=== PATIENT | male | born 2000 | race Caucasian/White ===

== ENCOUNTER 2020-11-05 18:44 | Inpatient (IN) ==
[2020-11-05] MEDS ORDERED: dexAMETHasone**PF** 10 MG/ML VIAL IV ONE (18:49)
[2020-11-05] MEDS ORDERED: cefTRIAXone SODIUM 2,000 MG/70 ML BAG IV STA (18:49)
[2020-11-05 19:06] LABS: Appearance Urine Clear (Clear); Bacteria Urine Automated Negative (Negative); Bilirubin Urine Negative (Negative); Blood Urine Negative (Negative); Cast Urine Automated 0 /lpf (0-5); Color Urine Yellow; Glucose Urine UA Negative (Negative); Ketones Urine Negative (Negative); Leukocyte Esterase Urine Negative (Negative); Nitrite Urine Negative (Negative); Protein Urine 1+ (Negative); RBC Urine Automated 0-4 /hpf (0-4); Specific Gravity Urine 1.011 (1.000-1.030); Urobilinogen Urine Negative (Negative); pH Urine 5.5 (4.5-7.5)
--- NOTE | 2020-11-05 19:10 | Emergency Department Note ---
Impression & Plan Delirium, Aggressive behavior, Fever, Combative behavior ED Provider Note NAME: DAVE COREAS AGE: 20 SEX: M : 2000 ARRIVES VIA: Ambulance INFORMANT: Prehospital personnel, the police ED PROVIDER(S): Richard Martin DO CHIEF COMPLAINT: Altered mental status HPI: The patient is a 20-year-old male who presented to the emergency department for an evaluation of altered mental status. The patient is visiting friends in [place]. The patient is from the [place] area. Very little history is able to be obtained from the patient. He offers no history himself. I received a prehospital phone call about this patient. He was found to be very agitated by his friends and was injuring himself as well as his friends. The police were called. When they arrived the patient was unable to be restrained. When the prehospital personnel arrived they called me in order to secure further orders. The patient was given ketamine prior to arrival for excited delirium. There was no other history given. There was no definite history of trauma. There is no definite history of drug abuse but the police did produce a small canister that had a crystalline-like substance that was felt to be consistent with some sort of drug paraphernalia. The patient has no signs of trauma. ROS: See above HPI for pertinent positives & negatives. A total of 10 systems reviewed and were otherwise negative. PAST MEDICAL HISTORY: See Below PAST SURGICAL HISTORY: See Below FAMILY HISTORY: See Below SOCIAL HISTORY: See Below HOME MEDICATIONS: See Below ALLERGIES: See Below VITALS: See Below PHYSICAL EXAMINATION: GENERAL: The patient is obtunded likely secondary to ketamine he does not follow commands or answer questions. EYES: The conjunctivae are injected. The pupils are dilated and minimally reactive bilaterally. EARS, NOSE, MOUTH AND THROAT: The nose is without any evidence of any deformity. Mucous membranes are dry. NECK: The neck is nontender and supple. RESPIRATORY: Normal respiratory effort is noted there is no evidence of wheezing rhonchi or rales CARDIOVASCULAR: Tachycardic rate with regular rhythm was noted. There was no definite murmur. GASTROINTESTINAL: The abdomen is soft. Abdomen is nontender. BACK: No step-off was noted. MUSCULOSKELETAL/EXTREMITIES: There is no evidence of gross deformity full range of motion is noted in the hips and shoulders. SKIN: Skin is warm and dry. There is no pedal edema. Pulses are symmetric in all extremities. NEUROLOGIC: Patient is obtunded and does not answer questions. Patellar tendon reflexes are 3+ bilaterally. MEDICAL DECISION MAKING: The patient is a 20-year-old male who presented to the emergency department with police and EMS for an evaluation of altered mental status. The patient was found by his friends very combative. There is no history of trauma but the patient's history was completely limited due to altered mental status. The police were called as well as the EMS. When they arrived the patient was very combative and they were unable to subdue the patient despite having multiple police officers multiple EMS personnel. I received a prehospital notification about this patient and the patient was ordered ketamine IM. The patient was able to be transported safely after that initiation. Upon arrival the patient was placed in soft restraints but was significantly improved. He was still unable to answer any questions and no definite cause for the patient's presenta tion could be found. The police did have some paraphernalia which could be consistent with drug use but his drug screen was only positive for marijuana. The patient had a fever upon arrival but this could be secondary to the excited delirium. CT the head showed no acute disease so lumbar puncture was obtained. The patient was treated with IV fluids IV antibiotics and IV Decadron in case his lumbar puncture was positive. Lumbar puncture did not appear to be consistent with meningitis or subarachnoid hemorrhage. The patient was reevaluated multiple times. He did receive further sedation while in the emergency department. At this time I will discuss the patient's condition with the [facility] hospitalist. Likely the patient will require further inpatient observation to ensure his condition continues to improve. Triage Nursing notes reviewed. Prior medical records reviewed Vital Signs: reviewed and remarkable for elevated temperature and initial tachycardia. Differential diagnosis: Infection, hypoglycemia, electrolyte abnormalities, overdose, toxicologic, cardiac sources, intracerebral event, neurologic, trauma, as well as other pathologies. ER treatment provided: See below Diagnostics interpreted by me: ECG: EKG was obtained in the emergency department. My interpretation is sinus tachycardia at 116 bpm. There is no ectopy. There is no acute ST segment abnormalities noted. No previous tracing was available. Cardiac Monitoring: An order was placed for continuous cardiac monitoring. The monitor shows a rate of 85 bpm with sinus rhythm. Laboratory studies: As stated above and show below. Imaging studies: See below Consultation(s): Dr. Rothman was notified about the patient. He will evaluate the patient in the emergency department. ED COURSE: Procedures: Lumbar Puncture Indication: Fever and altered mental status. Verbal consent was unable to be obtained as the patient is altered in his mental status and is not able to give consent. At this time, the risks of the procedure are less than the risks of NOT performing the procedure. A time out was taken and the correct patient and site identified. The patient was placed in the left lateral position and the back was prepped with betadine and draped in the standard fashion. The L3 intervertebral space was identified, anesthetized locally with 1% lidocaine without epinephrine, and the spinal needle was inserted through the skin with the bevel parallel to the dural fibers. The needle was carefully advanced into the lumbar cistern and 4 tubes of clear CSF was obtained. The stylet was replaced and the needle was removed. A bandaid was placed and the patient was placed in the supine position. The patient tolerated the procedure well and there were no complications. Critical Care: I have personally spent greater than 55 minutes of critical care time in the direct management of this patient. This includes bedside care, interpretation of diagnostic studies, and testing, discussion with consultants, patient, and family members, and other required patient management activities. This 55 minutes is in excess of all separately billable procedures. Past Med/Surg History Social History Smoking Status: Unknown if ever smoked Preferred Language: Citizen Of [place] Home Meds Home Medications Medication Instructions Recorded Confirmed Unobtainable 11/05/20 11/05/20 Results & Data (ED) Vital Signs Vital Signs - 24 hr 11/05/20 18:47 11/05/20 18:48 11/05/20 18:56 Temperature 38 C H Temperature Source Oral Pulse Rate 115 H 122 H 127 H Pulse Rate from SpO2 Sensor 130 H 119 H Respiratory Rate 19 19 13 Respiratory Effort / Characteristics Blood Pressure 130/102 H 130/102 H Blood Pressure Mean 111 111 Blood Pressure Position Lying Pulse Oximetry 97 97 96 Oxygen Delivery Method Room Air Nasal Cannula Nasal Cannula Oxygen Flow Rate 4 4 Sepsis Recent Fever Within 48 Hours Yes Sepsis New/Unexplained Change in Mental Status Yes Sepsis Action Taken by Nursing Physician Notified 11/05/20 18:57 11/05/20 19:00 11/05/20 19:20 Temperature 39.4 C H Temperature Source Rectal Pulse Rate 116 H 109 H Pulse Rate from SpO2 Sensor 124 H 107 H Respiratory Rate 22 17 27 H Respiratory Effort / Characteristics Non-Labored Spontaneous Blood Pressure 154/106 H Blood Pressure Mean 122 Blood Pressure Position Pulse Oximetry 96 98 Oxygen Delivery Method Nasal Cannula Nasal Cannula Nasal Cannula Oxygen Flow Rate 4 4 4 Sepsis Recent Fever Within 48 Hours Sepsis New/Unexplained Change in Mental Status Sepsis Action Taken by Nursing 11/05/20 19:24 11/05/20 19:48 11/05/20 20:00 Temperature Temperature Source Pulse Rate 66 Pulse Rate from SpO2 Sensor 84 66 Respiratory Rate 24 22 17 Respiratory Effort / Characteristics Non-Labored Spontaneous Blood Pressure 172/74 H 128/66 Blood Pressure Mean 106 86 Blood Pressure Position Pulse Oximetry 96 96 95 Oxygen Delivery Method Nasal Cannula Nasal Cannula Nasal Cannula Oxygen Flow Rate 4 4 4 Sepsis Recent Fever Within 48 Hours Sepsis New/Unexplained Change in Mental Status Sepsis Action Taken by Nursing 11/05/20 20:07 11/05/20 20:20 Temperature 38.6 C H Temperature Source Rectal Pulse Rate Pulse Rate from SpO2 Sensor Respiratory Rate 18 Respiratory Effort / Characteristics Non-Labored Spontaneous Blood Pressure Blood Pressure Mean Blood Pressure Position Pulse Oximetry 96 Oxygen Delivery Method Nasal Cannula Oxygen Flow Rate 4 Sepsis Recent Fever Within 48 Hours Sepsis New/Unexplained Change in Mental Status Sepsis Action Taken by [facility] Medications Current Medication List: was personally reviewed by me Laboratory Data Attestation: I reviewed the patient's lab results. Result diagrams: 11/05/20 18:56 11/05/20 18:56 Lab Results 11/05/20 11/05/20 11/05/20 Range/Units 18:50 18:50 18:56 WBC (4.8-10.8) K/uL RBC (4.7-6.1) M/uL Hgb (14.0-18.0) g/dL Hct (42-52) % MCV (80-100) fL MCH (25-34) pg MCHC (32-36) g/dL RDW Std Deviation (36.4-46.3) fL RDW Coeff of Kasey (11.5-14.5) % Plt Count (130-400) K/uL MPV (7.4-10.4) fL Immature Gran % (Auto) % Neut % (Auto) % Lymph % (Auto) % [place] % (Auto) % Eos % (Auto) % Baso % (Auto) % Neut # (Auto) (1.4-6.5) K/uL Lymph # (Auto) (1.2-3.4) K/uL [place] # (Auto) (0.11-0.59) K/uL Eos # (Auto) (0-0.5) K/uL Baso # (Auto) (0-0.2) K/uL Immature Gran # (Auto) (0.00-0.02) K/uL ESR 2 (0-14) mm/hr PT (9.0-12.0) Seconds INR (0.9-1.1) APTT (21.0-31.0) Seconds PTT Ratio Sodium (136-145) mmol/L Potassium (3.5-5.1) mmol/L Chloride (98-107) mmol/L Carbon Dioxide (21-32) mmol/L Anion Gap (3-11) BUN (7-18) mg/dl Creatinine (0.6-1.4) mg/dl Est Cr Clr Drug Dosing Est GFR ( Amer) Est GFR (Non-Af Amer) BUN/Creatinine Ratio (10-20) Glucose (70-99) mg/dl Osmolality (280-300) mOsm/kg Lactate (0.4-2.0) mmol/L Calcium (8.5-10.1) mg/dl Magnesium (1.8-2.4) mg/dl Total Bilirubin (0.2-1) mg/dl AST (15-37) U/L ALT (12-78) U/L Alkaline Phosphatase (45-117) U/L Total Creatine Kinase (39-308) U/L CK-MB (CK-2) (0.5-3.6) ng/ml CK/CKMB % Calc (0-3.0) Troponin I (0-0.045) ng/ml C-Reactive Protein (0-0.29) mg/dl Total Protein (6.4-8.2) gm/dl Albumin (3.4-5.0) gm/dl Globulin (2.5-4.0) gm/dl Albumin/Globulin Ratio (0.9-2) Procalcitonin (0-0.5) ng/ml Urine Color Yellow Urine Appearance Clear (Clear) Urine pH 5.5 (4.5-7.5) Ur Specific [place] 1.011 (1.000-1.030) Urine Protein 1+ H (Negative) Urine Glucose (UA) Negative (Negative) Urine Ketones Negative (Negative) Urine Blood Negative (Negative) Urine Nitrite Negative (Negative) Urine Bilirubin Negative (Negative) Urine Urobilinogen Negative (Negative) Ur Leukocyte Esterase Negative (Negative) Urine WBC (Auto) 1-5 (0-5) /hpf Urine RBC (Auto) 0-4 (0-4) /hpf U Hyaline Cast (Auto) 0 (0-5) /lpf U Epithel Cells (Auto) 5-10 H (0-5) /lpf Urine Bacteria (Auto) Negative (Negative) Fluid Comment CSF Appearance CSF Color Xanthrochromic CSF WBC (0-5) /uL CSF RBC (0-) /uL CSF Cell Count Tube # CSF Chemistry Tube # CSF Glucose (40-70) mg/dl CSF Total Protein (15-45) mg/dl Salicylates (2.8-20) mg/dl Urine Opiates Screen Neg (Neg) Ur Methadone, Qual Neg (Neg) Acetaminophen (10-30) ug/ml Urine Barbiturates Neg (Neg) Ur Phencyclidine (PCP) Neg (Neg) U Amphetamin/Meth Scrn Neg (Neg) MDMA (Ecstasy) Screen Neg (Neg) U Benzodiazepines Scrn Neg (Neg) Ur Cocaine Metabolite Neg (Neg) U Marijuana (THC) Screen Pos H (Neg) Ethyl Alcohol mg/dL (0-3) mg/dl COVID-19 Eval Order SARS-CoV-2 (PCR) (Negative) Influenza Type A (PCR) (Neg) Influenza Type B (PCR) (Neg) RSV (RT-PCR) (Neg) 11/05/20 11/05/20 11/05/20 Range/Units 18:56 18:56 18:56 WBC (4.8-10.8) K/uL RBC (4.7-6.1) M/uL Hgb (14.0-18.0) g/dL Hct (42-52) % MCV (80-100) fL MCH (25-34) pg MCHC (32-36) g/dL RDW Std Deviation (36.4-46.3) fL RDW Coeff of Kasey (11.5-14.5) % Plt Count (130-400) K/uL MPV (7.4-10.4) fL Immature Gran % (Auto) % Neut % (Auto) % Lymph % (Auto) % [place] % (Auto) % Eos % (Auto) % Baso % (Auto) % Neut # (Auto) (1.4-6.5) K/uL Lymph # (Auto) (1.2-3.4) K/uL [place] # (Auto) (0.11-0.59) K/uL Eos # (Auto) (0-0.5) K/uL Baso # (Auto) (0-0.2) K/uL Immature Gran # (Auto) (0.00-0.02) K/uL ESR (0-14) mm/hr PT (9.0-12.0) Seconds INR (0.9-1.1) APTT (21.0-31.0) Seconds PTT Ratio Sodium 135 L (136-145) mmol/L Potassium 3.7 (3.5-5.1) mmol/L Chloride 99 (98-107) mmol/L Carbon Dioxide 24 (21-32) mmol/L Anion Gap 12.0 H (3-11) BUN 15 (7-18) mg/dl Creatinine 1.41 H (0.6-1.4) mg/dl Est Cr Clr Drug Dosing Not Reportable Est GFR ( Amer) 82.5 Est GFR (Non-Af Amer) 71.2 BUN/Creatinine Ratio 10.8 (10-20) Glucose 142 H (70-99) mg/dl Osmolality 285 (280-300) mOsm/kg Lactate (0.4-2.0) mmol/L Calcium 8.4 L (8.5-10.1) mg/dl Magnesium 1.9 (1.8-2.4) mg/dl Total Bilirubin 0.5 (0.2-1) mg/dl AST 32 (15-37) U/L ALT 27 (12-78) U/L Alkaline Phosphatase 82 (45-117) U/L Total Creatine Kinase 679 H (39-308) U/L CK-MB (CK-2) 3.7 H (0.5-3.6) ng/ml CK/CKMB % Calc 0.5 (0-3.0) Troponin I < 0.015 (0-0.045) ng/ml C-Reactive Protein < 0.29 (0-0.29) mg/dl Total Protein 7.8 (6.4-8.2) gm/dl Albumin 4.3 (3.4-5.0) gm/dl Globulin 3.5 (2.5-4.0) gm/dl Albumin/Globulin Ratio 1.2 (0.9-2) Procalcitonin (0-0.5) ng/ml Urine Color Urine Appearance (Clear) Urine pH (4.5-7.5) Ur Specific [place] (1.000-1.030) Urine Protein (Negative) Urine Glucose (UA) (Negative) Urine Ketones (Negative) Urine Blood (Negative) Urine Nitrite (Negative) Urine Bilirubin (Negative) Urine Urobilinogen (Negative) Ur Leukocyte Esterase (Negative) Urine WBC (Auto) (0-5) /hpf Urine RBC (Auto) (0-4) /hpf U Hyaline Cast (Auto) (0-5) /lpf U Epithel Cells (Auto) (0-5) /lpf Urine Bacteria (Auto) (Negative) Fluid Comment CSF Appearance CSF Color Xanthrochromic CSF WBC (0-5) /uL CSF RBC (0-) /uL CSF Cell Count Tube # CSF Chemistry Tube # CSF Glucose (40-70) mg/dl CSF Total Protein (15-45) mg/dl Salicylates (2.8-20) mg/dl Urine Opiates Screen (Neg) Ur Methadone, Qual (Neg) Acetaminophen (10-30) ug/ml Urine Barbiturates (Neg) Ur Phencyclidine (PCP) (Neg) U Amphetamin/Meth Scrn (Neg) MDMA (Ecstasy) Screen (Neg) U Benzodiazepines Scrn (Neg) Ur Cocaine Metabolite (Neg) U Marijuana (THC) Screen (Neg) Ethyl Alcohol mg/dL < 3.0 (0-3) mg/dl COVID-19 Eval Order SARS-CoV-2 (PCR) (Negative) Influenza Type A (PCR) (Neg) Influenza Type B (PCR) (Neg) RSV (RT-PCR) (Neg) 11/05/20 11/05/20 11/05/20 Range/Units 18:56 18:56 18:56 WBC 8.55 (4.8-10.8) K/uL RBC 4.68 L (4.7-6.1) M/uL Hgb 14.3 (14.0-18.0) g/dL Hct 40.5 L (42-52) % MCV 86.5 (80-100) fL MCH 30.6 (25-34) pg MCHC 35.3 (32-36) g/dL RDW Std Deviation 37.7 (36.4-46.3) fL RDW Coeff of Kasey 12.0 (11.5-14.5) % Plt Count 246 (130-400) K/uL MPV 9.5 (7.4-10.4) fL Immature Gran % (Auto) 0.2 % Neut % (Auto) 75.2 % Lymph % (Auto) 15.6 % [place] % (Auto) 8.7 % Eos % (Auto) 0.2 % Baso % (Auto) 0.1 % Neut # (Auto) 6.43 (1.4-6.5) K/uL Lymph # (Auto) 1.33 (1.2-3.4) K/uL [place] # (Auto) 0.74 H (0.11-0.59) K/uL Eos # (Auto) 0.02 (0-0.5) K/uL Baso # (Auto) 0.01 (0-0.2) K/uL Immature Gran # (Auto) 0.02 (0.00-0.02) K/uL ESR (0-14) mm/hr PT 11.5 (9.0-12.0) Seconds INR 1.1 (0.9-1.1) APTT 22.5 (21.0-31.0) Seconds PTT Ratio 0.9 Sodium (136-145) mmol/L Potassium (3.5-5.1) mmol/L Chloride (98-107) mmol/L Carbon Dioxide (21-32) mmol/L Anion Gap (3-11) BUN (7-18) mg/dl Creatinine (0.6-1.4) mg/dl Est Cr Clr Drug Dosing Est GFR ( Amer) Est GFR (Non-Af Amer) BUN/Creatinine Ratio (10-20) Glucose (70-99) mg/dl Osmolality (280-300) mOsm/kg Lactate (0.4-2.0) mmol/L Calcium (8.5-10.1) mg/dl Magnesium (1.8-2.4) mg/dl Total Bilirubin (0.2-1) mg/dl AST (15-37) U/L ALT (12-78) U/L Alkaline Phosphatase (45-117) U/L Total Creatine Kinase (39-308) U/L CK-MB (CK-2) (0.5-3.6) ng/ml CK/CKMB % Calc (0-3.0) Troponin I (0-0.045) ng/ml C-Reactive Protein (0-0.29) mg/dl Total Protein (6.4-8.2) gm/dl Albumin (3.4-5.0) gm/dl Globulin (2.5-4.0) gm/dl Albumin/Globulin Ratio (0.9-2) Procalcitonin < 0.05 (0-0.5) ng/ml Urine Color Urine Appearance (Clear) Urine pH (4.5-7.5) Ur Specific [place] (1.000-1.030) Urine Protein (Negative) Urine Glucose (UA) (Negative) Urine Ketones (Negative) Urine Blood (Negative) Urine Nitrite (Negative) Urine Bilirubin (Negative) Urine Urobilinogen (Negative) Ur Leukocyte Esterase (Negative) Urine WBC (Auto) (0-5) /hpf Urine RBC (Auto) (0-4) /hpf U Hyaline Cast (Auto) (0-5) /lpf U Epithel Cells (Auto) (0-5) /lpf Urine Bacteria (Auto) (Negative) Fluid Comment CSF Appearance CSF Color Xanthrochromic CSF WBC (0-5) /uL CSF RBC (0-) /uL CSF Cell Count Tube # CSF Chemistry Tube # CSF Glucose (40-70) mg/dl CSF Total Protein (15-45) mg/dl Salicylates (2.8-20) mg/dl Urine Opiates Screen (Neg) Ur Methadone, Qual (Neg) Acetaminophen (10-30) ug/ml Urine Barbiturates (Neg) Ur Phencyclidine (PCP) (Neg) U Amphetamin/Meth Scrn (Neg) MDMA (Ecstasy) Screen (Neg) U Benzodiazepines Scrn (Neg) Ur Cocaine Metabolite (Neg) U Marijuana (THC) Screen (Neg) Ethyl Alcohol mg/dL (0-3) mg/dl COVID-19 Eval Order SARS-CoV-2 (PCR) (Negative) Influenza Type A (PCR) (Neg) Influenza Type B (PCR) (Neg) RSV (RT-PCR) (Neg) 11/05/20 11/05/20 11/05/20 Range/Units 18:56 18:56 18:59 WBC (4.8-10.8) K/uL RBC (4.7-6.1) M/uL Hgb (14.0-18.0) g/dL Hct (42-52) % MCV (80-100) fL MCH (25-34) pg MCHC (32-36) g/dL RDW Std Deviation (36.4-46.3) fL RDW Coeff of Kasey (11.5-14.5) % Plt Count (130-400) K/uL MPV (7.4-10.4) fL Immature Gran % (Auto) % Neut % (Auto) % Lymph % (Auto) % [place] % (Auto) % Eos % (Auto) % Baso % (Auto) % Neut # (Auto) (1.4-6.5) K/uL Lymph # (Auto) (1.2-3.4) K/uL [place] # (Auto) (0.11-0.59) K/uL Eos # (Auto) (0-0.5) K/uL Baso # (Auto) (0-0.2) K/uL Immature Gran # (Auto) (0.00-0.02) K/uL ESR (0-14) mm/hr PT (9.0-12.0) Seconds INR (0.9-1.1) APTT (21.0-31.0) Seconds PTT Ratio Sodium (136-145) mmol/L Potassium (3.5-5.1) mmol/L Chloride (98-107) mmol/L Carbon Dioxide (21-32) mmol/L Anion Gap (3-11) BUN (7-18) mg/dl Creatinine (0.6-1.4) mg/dl Est Cr Clr Drug Dosing Est GFR ( Amer) Est GFR (Non-Af Amer) BUN/Creatinine Ratio (10-20) Glucose (70-99) mg/dl Osmolality (280-300) mOsm/kg Lactate 6.4 H* (0.4-2.0) mmol/L Calcium (8.5-10.1) mg/dl Magnesium (1.8-2.4) mg/dl Total Bilirubin (0.2-1) mg/dl AST (15-37) U/L ALT (12-78) U/L Alkaline Phosphatase (45-117) U/L Total Creatine Kinase (39-308) U/L CK-MB (CK-2) (0.5-3.6) ng/ml CK/CKMB % Calc (0-3.0) Troponin I (0-0.045) ng/ml C-Reactive Protein (0-0.29) mg/dl Total Protein (6.4-8.2) gm/dl Albumin (3.4-5.0) gm/dl Globulin (2.5-4.0) gm/dl Albumin/Globulin Ratio (0.9-2) Procalcitonin (0-0.5) ng/ml Urine Color Urine Appearance (Clear) Urine pH (4.5-7.5) Ur Specific [place] (1.000-1.030) Urine Protein (Negative) Urine Glucose (UA) (Negative) Urine Ketones (Negative) Urine Blood (Negative) Urine Nitrite (Negative) Urine Bilirubin (Negative) Urine Urobilinogen (Negative) Ur Leukocyte Esterase (Negative) Urine WBC (Auto) (0-5) /hpf Urine RBC (Auto) (0-4) /hpf U Hyaline Cast (Auto) (0-5) /lpf U Epithel Cells (Auto) (0-5) /lpf Urine Bacteria (Auto) (Negative) Fluid Comment CSF Appearance CSF Color Xanthrochromic CSF WBC (0-5) /uL CSF RBC (0-) /uL CSF Cell Count Tube # CSF Chemistry Tube # CSF Glucose (40-70) mg/dl CSF Total Protein (15-45) mg/dl Salicylates < 1.7 L (2.8-20) mg/dl Urine Opiates Screen (Neg) Ur Methadone, Qual (Neg) Acetaminophen < 2 L (10-30) ug/ml Urine Barbiturates (Neg) Ur Phencyclidine (PCP) (Neg) U Amphetamin/Meth Scrn (Neg) MDMA (Ecstasy) Screen (Neg) U Benzodiazepines Scrn (Neg) Ur Cocaine Metabolite (Neg) U Marijuana (THC) Screen (Neg) Ethyl Alcohol mg/dL (0-3) mg/dl COVID-19 Eval Order [facility] at [facility] SARS-CoV-2 (PCR) (Negative) Influenza Type A (PCR) (Neg) Influenza Type B (PCR) (Neg) RSV (RT-PCR) (Neg) 11/05/20 11/05/20 Range/Units 18:59 19:49 WBC (4.8-10.8) K/uL RBC (4.7-6.1) M/uL Hgb (14.0-18.0) g/dL Hct (42-52) % MCV (80-100) fL MCH (25-34) pg MCHC (32-36) g/dL RDW Std Deviation (36.4-46.3) fL RDW Coeff of Kasey (11.5-14.5) % Plt Count (130-400) K/uL MPV (7.4-10.4) fL Immature Gran % (Auto) % Neut % (Auto) % Lymph % (Auto) % [place] % (Auto) % Eos % (Auto) % Baso % (Auto) % Neut # (Auto) (1.4-6.5) K/uL Lymph # (Auto) (1.2-3.4) K/uL [place] # (Auto) (0.11-0.59) K/uL Eos # (Auto) (0-0.5) K/uL Baso # (Auto) (0-0.2) K/uL Immature Gran # (Auto) (0.00-0.02) K/uL ESR (0-14) mm/hr PT (9.0-12.0) Seconds INR (0.9-1.1) APTT (21.0-31.0) Seconds PTT Ratio Sodium (136-145) mmol/L Potassium (3.5-5.1) mmol/L Chloride (98-107) mmol/L Carbon Dioxide (21-32) mmol/L Anion Gap (3-11) BUN (7-18) mg/dl Creatinine (0.6-1.4) mg/dl Est Cr Clr Drug Dosing Est GFR ( Amer) Est GFR (Non-Af Amer) BUN/Creatinine Ratio (10-20) Glucose (70-99) mg/dl Osmolality (280-300) mOsm/kg Lactate (0.4-2.0) mmol/L Calcium (8.5-10.1) mg/dl Magnesium (1.8-2.4) mg/dl Total Bilirubin (0.2-1) mg/dl AST (15-37) U/L ALT (12-78) U/L Alkaline Phosphatase (45-117) U/L Total Creatine Kinase (39-308) U/L CK-MB (CK-2) (0.5-3.6) ng/ml CK/CKMB % Calc (0-3.0) Troponin I (0-0.045) ng/ml C-Reactive Protein (0-0.29) mg/dl Total Protein (6.4-8.2) gm/dl Albumin (3.4-5.0) gm/dl Globulin (2.5-4.0) gm/dl Albumin/Globulin Ratio (0.9-2) Procalcitonin (0-0.5) ng/ml Urine Color Urine Appearance (Clear) Urine pH (4.5-7.5) Ur Specific [place] (1.000-1.030) Urine Protein (Negative) Urine Glucose (UA) (Negative) Urine Ketones (Negative) Urine Blood (Negative) Urine Nitrite (Negative) Urine Bilirubin (Negative) Urine Urobilinogen (Negative) Ur Leukocyte Esterase (Negative) Urine WBC (Auto) (0-5) /hpf Urine RBC (Auto) (0-4) /hpf U Hyaline Cast (Auto) (0-5) /lpf U Epithel Cells (Auto) (0-5) /lpf Urine Bacteria (Auto) (Negative) Fluid Comment CSF Appearance Clear CSF Color Colorless Xanthrochromic No xanthochromia CSF WBC 0 (0-5) /uL CSF RBC 2 (0-) /uL CSF Cell Count Tube # 3 CSF Chemistry Tube # 1 CSF Glucose 67 (40-70) mg/dl CSF Total Protein 43.1 (15-45) mg/dl Salicylates (2.8-20) mg/dl Urine Opiates Screen (Neg) Ur Methadone, Qual (Neg) Acetaminophen (10-30) ug/ml Urine Barbiturates (Neg) Ur Phencyclidine (PCP) (Neg) U Amphetamin/Meth Scrn (Neg) MDMA (Ecstasy) Screen (Neg) U Benzodiazepines Scrn (Neg) Ur Cocaine Metabolite (Neg) U Marijuana (THC) Screen (Neg) Ethyl Alcohol mg/dL (0-3) mg/dl COVID-19 Eval Order SARS-CoV-2 (PCR) NEGATIVE (Negative) Influenza Type A (PCR) Negative (Neg) Influenza Type B (PCR) Negative (Neg) RSV (RT-PCR) Negative (Neg) Administered Medications Discontinued Medications Acetaminophen (Acetaminophen 1000 Mg/100 Ml Iv) 1,000 mg IV ONE ONE Stop: 11/05/20 19:55 Last Admin: 11/05/20 19:56 Dose: 1,000 mg Documented by: [id number] Dexamethasone Sodium Phosphate (DexamethasonePf 10 Mg/Ml Vial) 10 mg IV NOW ONE Stop: 11/05/20 18:50 Last Admin: 11/05/20 19:02 Dose: 10 mg Documented by: [id number] Haloperidol Lactate (Haloperidol Lactate 5 Mg/Ml 1 Ml Vial) 5 mg IM NOW STA Stop: 11/05/20 19:19 Last Admin: 11/05/20 19:23 Dose: 5 mg Documented by: [id number] Haloperidol Lactate (Haloperidol Lactate 5 Mg/Ml 1 Ml Vial) Confirm Administered Dose 5 mg .ROUTE .STK-MED ONE Stop: 11/05/20 19:19 Last Admin: 11/05/20 19:23 Dose: Not Given Documented by: [id number] Ceftriaxone Sodium (Rocephin) 2,000 mg in 70 mls @ 140 mls/hr IV NOW STA Stop: 11/05/20 19:18 Last Infusion: 11/05/20 19:34 Dose: 0 mls/hr Documented by: [id number] Admin: 11/05/20 19:04 Dose: 140 mls/hr Documented by: [id number] Sodium Chloride (Nss 1000ml) 1,000 mls @ 999 mls/hr IV .Q1H1M ONE Stop: 11/05/20 20:48 Last Admin: 11/05/20 19:56 Dose: 999 mls/hr Documented by: [id number] Lorazepam (Lorazepam 2 Mg/Ml Vial (Im Use)) 2 mg IM NOW STA Stop: 11/05/20 19:19 Last Admin: 11/05/20 19:23 Dose: Not Given Documented by: [id number] Lorazepam (Lorazepam 2 Mg/4 Ml Vial) Confirm Administered Dose 2 mg .ROUTE .STK- MED ONE Stop: 11/05/20 19:19 Last Admin: 11/05/20 19:22 Dose: 2 mg Documented by: [id number] Imaging Data Radiologist's Impression: Cervical Spine CT 11/05/20 18:49 CT cervical spine wo con CT DOSE: 1104.62 mGy.cm CLINICAL HISTORY: 20 years-old Male with ams. Acute head and neck pain with altered mental status COMPARISON: Head CT of same day TECHNIQUE: Multiple axial CT images of the cervical spine were obtained without contrast. A dose lowering technique was utilized adhering to the principles of ALARA. FINDINGS: Vertebral body heights and alignment are normal. No fracture or subluxation is identified. The intervertebral disc spaces are preserved. No significant central canal or neural foraminal stenosis is identified. The cervical soft tissues appear unremarkable. The visualized lung apices appear clear. IMPRESSION: No acute fracture or subluxation. ACT 112: Negative or not required by law. The above report was generated using voice recognition software. It may contain grammatical, syntax or spelling errors. Electronically signed by: Reece Zuluaga M.D. 11/05/2020 7:[address] 11/05/20 18:49 CT head/brain wo con CLINICAL HISTORY: 20 years-old Male with ams. Acutely altered mental status TECHNIQUE: Multiple axial CT images of the head were obtained without contrast. A dose lowering technique was utilized adhering to the principles of ALARA. COMPARISON: CT cervical spine of same day FINDINGS: Motion degraded exam. No acute intracranial hemorrhage, midline shift, intracranial mass, hydrocephalus, territorial ischemia or abnormal extra-axial collection. The calvarium is intact. The paranasal sinuses, mastoid air cells, and middle ear cavities are clear. IMPRESSION: Motion degraded exam without acute intracranial abnormality identified. ACT 112: Negative or not required by law. The above report was generated using voice recognition software. It may contain grammatical, syntax or spelling errors. Electronically signed by: Reece Zuluaga M.D. 11/05/2020 7:22 PM Chest X-Ray 11/05/20 18:50 XR chest 1V portable HISTORY: 20 years-old Male SEPSIS COMPARISON: None TECHNIQUE: Portable semierect AP view the chest FINDINGS: Cardiac mediastinal and hilar silhouettes are within normal limits. Limited exam secondary to positioning. No pneumothorax, pleural effusion, airspace consolidation or overt pulmonary edema. Bones appear grossly intact. IMPRESSION: No acute process. ACT 112: Negative or not required by law. The above report was generated using voice recognition software. It may contain grammatical, syntax or spelling errors. Electronically signed by: Reece Zuluaga M.D. 11/05/2020 7:29 PM Discharge Plan Visit Data Chief Complaint: Overdose (Intentional) Stated Complaint: OVERDOSE ED Provider: Richard Martin Discharge Problem: Delirium, Aggressive behavior, Fever, Combative behavior Patient Disposition: Being Evaluated by Hospitalist Condition: Good Forms Stand Alone Forms: [facility], Suicide Prevention Resources Prescriptions Prescriptions: No Action Unobtainable RF: 0 Referrals Referrals: PCP,NO [Primary Care Provider] - Discharge Problem: Fever Qualifiers: Fever type: unspecified Qualified Code(s): R50.9 - Fever, unspecified
[2020-11-05 19:11] LABS: Basophils # (auto) 0.01 K/uL (0-0.2); Basophils % (auto) 0.1 %; Eosinophils # (auto) 0.02 K/uL (0-0.5); Eosinophils % (auto) 0.2 %; Hematocrit (blood only) 40.5 % (42-52); Hemoglobin 14.3 g/dL (14.0-18.0); Immature Granulocytes # (auto) 0.02 K/uL (0.00-0.02); Immature Granulocytes % (auto) 0.2 %; Lymphocytes # (auto) 1.33 K/uL (1.2-3.4); Lymphocytes % (auto) 15.6 %; Mean Corpuscular Hemoglobin 30.6 pg (25-34); Mean Corpuscular Hgb Conc 35.3 g/dL (32-36); Mean Corpuscular Volume 86.5 fL (80-100); Mean Platelet Volume 9.5 fL (7.4-10.4); Monocytes # (auto) 0.74 K/uL (0.11-0.59); Monocytes % (auto) 8.7 %; Neutrophils # (auto) 6.43 K/uL (1.4-6.5); Neutrophils % (auto) 75.2 %; Platelet Count 246 K/uL (130-400); RDW Standard Deviation 37.7 fL (36.4-46.3); Red Blood Count 4.68 M/uL (4.7-6.1); White Blood Count 8.55 K/uL (4.8-10.8)
[2020-11-05] MEDS ORDERED: HALOPERIDOL LACTATE 5 MG/ML 1 ML VIAL IM STA (19:18)
[2020-11-05] MEDS ORDERED: HALOPERIDOL LACTATE 5 MG/ML 1 ML VIAL ONE (19:18)
[2020-11-05] MEDS ORDERED: LORazepam 2 MG/4 ML VIAL ONE (19:18)
[2020-11-05] MEDS ORDERED: LORazepam 2 MG/ML VIAL (IM USE) IM STA (19:18)
[2020-11-05 19:22] LABS: Amphetamines+Metham, Urine Neg (Neg); Barbiturates, Urine Neg (Neg); Benzodiazepine, Urine Neg (Neg); Cocaine, Urine Neg (Neg); MDMA (Ecstacy), Urine Neg (Neg); Methadone, Urine Neg (Neg); Opiate, Urine Neg (Neg); Phencyclidine, Urine Neg (Neg)
--- NOTE | 2020-11-05 19:23 | CT Scan Report ---
CT head/brain wo con CLINICAL HISTORY: 20 years-old Male with ams. Acutely altered mental status TECHNIQUE: Multiple axial CT images of the head were obtained without contrast. A dose lowering tech nique was utilized adhering to the principles of ALARA. COMPARISON: CT cervical spine of same day FINDINGS: Motion degraded exam. No acute intracranial hemorrhage, midline shift, intracranial mass, hydrocephal us, territorial ischemia or abnormal extra-axial collection. The calvarium is intact. The paranasal sinuses, mastoid air cells, and middle ear cavities are clear . IMPRESSION: Motion degraded exam without acute intracranial abnormality identified. ACT 112: Negative or not required by law. The above report was generated using voice recognition software. It may contain grammatical, syntax o r spelling errors. Electronically signed by: Reece Zuluaga M.D. 11/05/2020 7:22 PM
[2020-11-05 19:30] LABS: INR 1.1 (0.9-1.1); Partial Thromboplastin Ratio 0.9; Partial Thromboplastin Time 22.5 Seconds (21.0-31.0); Prothrombin Time 11.5 Seconds (9.0-12.0)
--- NOTE | 2020-11-05 19:30 | XRay Report ---
XR chest 1V portable HISTORY: 20 years-old Male SEPSIS COMPARISON: None TECHNIQUE: Portable semierect AP view the chest FINDINGS: Cardiac mediastinal and hilar silhouettes are within normal limits. Limited exam secondary to positio zaida. No pneumothorax, pleural effusion, airspace consolidation or overt pulmonary edema. Bones appea r grossly intact. IMPRESSION: No acute process. ACT 112: Negative or not required by law. The above report was generated using voice recognition software. It may contain grammatical, syntax o r spelling errors. Electronically signed by: Reece Zuluaga M.D. 11/05/2020 7:29 PM
[2020-11-05 19:31] LABS: Alanine Aminotransferase 27 U/L (12-78); Albumin Level 4.3 gm/dl (3.4-5.0); Aspartate Aminotransferase 32 U/L (15-37); BUN Creatinine Ratio 10.8 (10-20); Blood Urea Nitrogen 15 mg/dl (7-18); Calcium 8.4 mg/dl (8.5-10.1); Carbon Dioxide 24 mmol/L (21-32); Chloride 99 mmol/L (98-107); Est GFR (African American) 82.5; Est GFR (Non-African American) 71.2; Glucose 142 mg/dl (70-99); Magnesium 1.9 mg/dl (1.8-2.4); Potassium 3.7 mmol/L (3.5-5.1); Sodium 135 mmol/L (136-145)
[2020-11-05 19:34] LABS: Albumin Globulin Ratio 1.2 (0.9-2); Alkaline Phosphatase 82 U/L (45-117); Bilirubin,Total 0.5 mg/dl (0.2-1); C Reactive Protein < 0.29 mg/dl (0-0.29); Creatine Kinase 679 U/L (39-308); Creatine Kinase MB 3.7 ng/ml (0.5-3.6); Globulin 3.5 gm/dl (2.5-4.0); Total Protein 7.8 gm/dl (6.4-8.2); Troponin I < 0.015 ng/ml (0-0.045)
--- NOTE | 2020-11-05 19:36 | CT Scan Report ---
CT cervical spine wo con CT DOSE: 1104.62 mGy.cm CLINICAL HISTORY: 20 years-old Male with ams. Acute head and neck pain with altered mental status COMPARISON: Head CT of same day TECHNIQUE: Multiple axial CT images of the cervical spine were obtained without contrast. A dose low ering technique was utilized adhering to the principles of ALARA. FINDINGS: Vertebral body heights and alignment are normal. No fracture or subluxation is identified. The intervertebral disc spaces are preserved. No significant central canal or neural foraminal s tenosis is identified. The cervical soft tissues appear unremarkable. The visualized lung apices appear clear. IMPRESSION: No acute fracture or subluxation. ACT 112: Negative or not required by law. The above report was generated using voice recognition software. It may contain grammatical, syntax o r spelling errors. Electronically signed by: Reece Zuluaga M.D. 11/05/2020 7:35 PM
[2020-11-05 19:37] LABS: Acetaminophen < 2 ug/ml (10-30); Salicylate < 1.7 mg/dl (2.8-20)
[2020-11-05] MEDS ORDERED: SODIUM CHLORIDE 0.9% 1000ML 1,000 ML IV ONE (19:48)
[2020-11-05] MEDS ORDERED: ACETAMINOPHEN 1000 MG/100 ML IV IV ONE (19:54)
[2020-11-05 19:56] LABS: Influenza A virus by PCR Negative (Neg); Influenza B virus by PCR Negative (Neg); RSV by PCR Negative (Neg); SARS CoV2 RNA(COVID-19) InHosp NEGATIVE (Negative)
[2020-11-05 20:12] LABS: CSF Chemistry Tube # 1
[2020-11-05 20:18] LABS: Appearance CSF Clear; CSF Count Tube # 3; CSF Xanthrochromic No xanthochromia; Color CSF Colorless; Red Blood Cell CSF (A) 2 /uL (0-); Red Blood Cell CSF (B) 0 /uL (0-); White Blood Cell CSF (B) 0 /uL (0-5)
[2020-11-05 20:20] LABS: CSF Glucose 67 mg/dl (40-70); Total Protein CSF 43.1 mg/dl (15-45); White Blood Cell CSF (A) 0 /uL (0-5)
--- NOTE | 2020-11-05 20:51 | History & Physical Report ---
Date of Service November 05, 2020 Assessment & Plan (1) Accidental drug overdose: Accidental drug overdose/UDS positive for marijuana/combative and aggressive behavior/delirium- Patient was thought to have been under the influence of synthetic marijuana, and panel has been sent off. Urine drug screen is otherwise negative Required ketamine in the field for sedation, and then Haldol along with Ativan IV in the ED. Patient sedated during my examination Have Haldol 5 mg IV and lorazepam 1 mg IV every 4 hours as needed agitation available. Patient did have mild temperature of 100.4 F, with no overt cause, but may have microaspirated. He did receive ceftriaxone 1 g IV from the ED. Place on Zosyn 3.375 g IV every 8 hours Present on Admission?: Yes (2) Marijuana use: See above Present on Admission?: Yes (3) Combative behavior: See above Present on Admission?: Yes (4) Aggressive behavior: See above Present on Admission?: Yes (5) Delirium: See above Present on Admission?: Yes (6) Fever: Maximum temperature was 102.9 F. No clear signs of infection at this time, but most likely if present, will be associated with urine or pulmonary. Present on Admission?: Yes (7) Acute kidney injury: Acute kidney injury/rhabdomyolysis- Creatinine 1.41 upon admission, with unknown baseline. CK 679 Placed on NSS at 150 mils per hour. Repeat laboratories in a.m. Present on Admission?: Yes (8) Rhabdomyolysis: See above Present on Admission?: Yes (9) Lactic acidosis: Presumptively secondary to drug use. Repeat laboratories per protocol Present on Admission?: Yes History of Present Illness Chief Complaint: The patient presents to the emergency department with delirium, aggressive behavior, combative behavior fever and drug overdose. Primary Care Provider: NO PCP The patient is a 20-year-old male with no known past medical history who presents with the above symptoms. Urine drug screen was positive for marijuana, and was felt that the patient may have used synthetic marijuana product. He was reported to have been so aggressive and combative in the field, that he required ketamine for sedation there, and then received additional Haldol and lorazepam from the ED. The patient remained unresponsive in the entire time in the ED during my assessment. Work-up in the ED included a CT scan of the cervical spine which was negative, CT head negative, chest x-ray negative and COVID-19 testing negative. CK was elevated at 679, creatinine was 1.41, glucose is 142, lactate was 6.4 and temperature 100.4 F. Home Medications Medication Instructions Recorded Confirmed Type Unobtainable 11/05/20 11/05/20 History Past Med/Surg History Social History Smoking Status: Unknown if ever smoked Hx Substance Use: No Preferred Language: [place]de[place] Communication Ability: Effective Beliefs That Will Affect Care: None Feels Safe at Home: Declines to Answer Review of Systems Review of Systems: Unobtainable due to cognitive status Physical Exam Physical Exam: The patient is unresponsive, well developed and well nourished, normocephalic and atraumatic, lying in bed and in no acute distress. HEENT--PERRL, EOMI, mucous membranes and oropharynx dry. Neck--supple. No JVD. No bruits. Thyroid normal, trachea midline, no adenopathy. Heart--normal S1 and S2. No murmurs, rubs or gallops. Lungs--clear bilaterally, no respiratory distress, no accessory muscle use. Abdomen--normal bowel sounds and soft. Nontender. Nondistended, no hernias or masses, no organomegaly. Extremities--no cyanosis or clubbing. No edema. There are good distal pulses b/l. Dermatologic--normal skin turgor, normal color, no abnormal lymph nodes, no rash. Neurologic--cranial nerves II through XII grossly intact. Rheumatologic--limited exam, normal range of motion. Psychiatric--unresponsive Results & Data Results & Data ([facility]) Vital Signs (Past 12 Hours) Vital Signs Temp Pulse Resp BP Pulse Ox 11/05/20 20:20 101.5 F H 11/05/20 20:07 18 96 11/05/20 20:00 66 17 128/66 95 11/05/20 19:48 22 172/74 H 96 11/05/20 19:24 24 96 11/05/20 19:20 102.9 F H 109 H 27 H 154/106 H 98 11/05/20 19:00 116 H 17 96 11/05/20 18:57 22 11/05/20 18:56 127 H 13 96 11/05/20 18:48 122 H 19 130/102 H 97 11/05/20 18:47 100.4 F H 115 H 19 130/102 H 97 Laboratory Results Laboratory Results WBC 8.55 K/uL (4.8-10.8) 11/05/20 18:56 RBC 4.68 M/uL (4.7-6.1) L 11/05/20 18:56 Hgb 14.3 g/dL (14.0-18.0) 11/05/20 18:56 Hct 40.5 % (42-52) L 11/05/20 18:56 MCV 86.5 fL (80-100) 11/05/20 18:56 MCH 30.6 pg (25-34) 11/05/20 18:56 MCHC 35.3 g/dL (32-36) 11/05/20 18:56 RDW Std Deviation 37.7 fL (36.4-46.3) 11/05/20 18:56 RDW Coeff of Kasey 12.0 % (11.5-14.5) 11/05/20 18:56 Plt Count 246 K/uL (130-400) 11/05/20 18:56 MPV 9.5 fL (7.4-10.4) 11/05/20 18:56 Immature Gran % (Auto) 0.2 % 11/05/20 18:56 Neut % (Auto) 75.2 % 11/05/20 18:56 Lymph % (Auto) 15.6 % 11/05/20 18:56 Whitfield % (Auto) 8.7 % 11/05/20 18:56 Eos % (Auto) 0.2 % 11/05/20 18:56 Baso % (Auto) 0.1 % 11/05/20 18:56 Neut # (Auto) 6.43 K/uL (1.4-6.5) 11/05/20 18:56 Lymph # (Auto) 1.33 K/uL (1.2-3.4) 11/05/20 18:56 Whitfield # (Auto) 0.74 K/uL (0.11-0.59) H 11/05/20 18:56 Eos # (Auto) 0.02 K/uL (0-0.5) 11/05/20 18:56 Baso # (Auto) 0.01 K/uL (0-0.2) 11/05/20 18:56 Immature Gran # (Auto) 0.02 K/uL (0.00-0.02) 11/05/20 18:56 ESR 2 mm/hr (0-14) 11/05/20 18:56 PT 11.5 Seconds (9.0-12.0) 11/05/20 18:56 INR 1.1 (0.9-1.1) 11/05/20 18:56 APTT 22.5 Seconds (21.0-31.0) 11/05/20 18:56 PTT Ratio 0.9 11/05/20 18:56 Sodium 135 mmol/L (136-145) L 11/05/20 18:56 Potassium 3.7 mmol/L (3.5-5.1) 11/05/20 18:56 Chloride 99 mmol/L (98-107) 11/05/20 18:56 Carbon Dioxide 24 mmol/L (21-32) 11/05/20 18:56 Anion Gap 12.0 (3-11) H 11/05/20 18:56 BUN 15 mg/dl (7-18) 11/05/20 18:56 Creatinine 1.41 mg/dl (0.6-1.4) H 11/05/20 18:56 Est Cr Clr Drug Dosing Not Reportable 11/05/20 18:56 Est GFR ( Amer) 82.5 11/05/20 18:56 Est GFR (Non-Af Amer) 71.2 11/05/20 18:56 BUN/Creatinine Ratio 10.8 (10-20) 11/05/20 18:56 Glucose 142 mg/dl (70-99) H 11/05/20 18:56 Osmolality 285 mOsm/kg (280-300) 11/05/20 18:56 Lactate 0.9 mmol/L (0.4-2.0) 11/05/20 20:40 Calcium 8.4 mg/dl (8.5-10.1) L 11/05/20 18:56 Magnesium 1.9 mg/dl (1.8-2.4) 11/05/20 18:56 Total Bilirubin 0.5 mg/dl (0.2-1) 11/05/20 18:56 AST 32 U/L (15-37) 11/05/20 18:56 ALT 27 U/L (12-78) 11/05/20 18:56 Alkaline Phosphatase 82 U/L (45-117) 11/05/20 18:56 Total Creatine Kinase 679 U/L (39-308) H 11/05/20 18:56 CK-MB (CK-2) 3.7 ng/ml (0.5-3.6) H 11/05/20 18:56 CK/CKMB % Calc 0.5 (0-3.0) 11/05/20 18:56 Troponin I < 0.015 ng/ml (0-0.045) 11/05/20 18:56 C-Reactive Protein < 0.29 mg/dl (0-0.29) 11/05/20 18:56 Total Protein 7.8 gm/dl (6.4-8.2) 11/05/20 18:56 Albumin 4.3 gm/dl (3.4-5.0) 11/05/20 18:56 Globulin 3.5 gm/dl (2.5-4.0) 11/05/20 18:56 Albumin/Globulin Ratio 1.2 (0.9-2) 11/05/20 18:56 Procalcitonin < 0.05 ng/ml (0-0.5) 11/05/20 18:56 Urine Color Yellow 11/05/20 18:50 Urine Appearance Clear (Clear) 11/05/20 18:50 Urine pH 5.5 (4.5-7.5) 11/05/20 18:50 Ur Specific Warren 1.011 (1.000-1.030) 11/05/20 18:50 Urine Protein 1+ (Negative) H 11/05/20 18:50 Urine Glucose (UA) Negative (Negative) 11/05/20 18:50 Urine Ketones Negative (Negative) 11/05/20 18:50 Urine Blood Negative (Negative) 11/05/20 18:50 Urine Nitrite Negative (Negative) 11/05/20 18:50 Urine Bilirubin Negative (Negative) 11/05/20 18:50 Urine Urobilinogen Negative (Negative) 11/05/20 18:50 Ur Leukocyte Esterase Negative (Negative) 11/05/20 18:50 Urine WBC (Auto) 1-5 /hpf (0-5) 11/05/20 18:50 Urine RBC (Auto) 0-4 /hpf (0-4) 11/05/20 18:50 U Hyaline Cast (Auto) 0 /lpf (0-5) 11/05/20 18:50 U Epithel Cells (Auto) 5-10 /lpf (0-5) H 11/05/20 18:50 Urine Bacteria (Auto) Negative (Negative) 11/05/20 18:50 Fluid Comment 11/05/20 19:49 CSF Appearance Clear 11/05/20 19:49 CSF Color Colorless 11/05/20 19:49 Xanthrochromic No xanthochromia 11/05/20 19:49 CSF WBC 0 /uL (0-5) 11/05/20 19:49 CSF RBC 2 /uL (0-) 11/05/20 19:49 CSF Cell Count Tube # 3 11/05/20 19:49 CSF Chemistry Tube # 1 11/05/20 19:49 CSF Glucose 67 mg/dl (40-70) 11/05/20 19:49 CSF Total Protein 43.1 mg/dl (15-45) 11/05/20 19:49 Salicylates < 1.7 mg/dl (2.8-20) L 11/05/20 18:56 Urine Opiates Screen Neg (Neg) 11/05/20 18:50 Ur Methadone, Qual Neg (Neg) 11/05/20 18:50 Acetaminophen < 2 ug/ml (10-30) L 11/05/20 18:56 Urine Barbiturates Neg (Neg) 11/05/20 18:50 Ur Phencyclidine (PCP) Neg (Neg) 11/05/20 18:50 U Amphetamin/Meth Scrn Neg (Neg) 11/05/20 18:50 MDMA (Ecstasy) Screen Neg (Neg) 11/05/20 18:50 U Benzodiazepines Scrn Neg (Neg) 11/05/20 18:50 Ur Cocaine Metabolite Neg (Neg) 11/05/20 18:50 U Marijuana (THC) Screen Pos (Neg) H 11/05/20 18:50 Ethyl Alcohol mg/dL < 3.0 mg/dl (0-3) 11/05/20 18:56 COVID-19 Eval Order CovFluRsv at [facility] 11/05/20 18:59 SARS-CoV-2 (PCR) NEGATIVE (Negative) 11/05/20 18:59 Influenza Type A (PCR) Negative (Neg) 11/05/20 18:59 Influenza Type B (PCR) Negative (Neg) 11/05/20 18:59 RSV (RT-PCR) Negative (Neg) 11/05/20 18:[address] 11/05/20 18:49 CT cervical spine wo con CT DOSE: 1104.62 mGy.cm CLINICAL HISTORY: 20 years-old Male with ams. Acute head and neck pain with altered mental status COMPARISON: Head CT of same day TECHNIQUE: Multiple axial CT images of the cervical spine were obtained without contrast. A dose lowering technique was utilized adhering to the principles of ALARA. FINDINGS: Vertebral body heights and alignment are normal. No fracture or subluxation is identified. The intervertebral disc spaces are preserved. No significant central canal or neural foraminal stenosis is identified. The cervical soft tissues appear unremarkable. The visualized lung apices appear clear. IMPRESSION: No acute fracture or subluxation. ACT 112: Negative or not required by law. The above report was generated using voice recognition software. It may contain grammatical, syntax or spelling errors. Electronically signed by: Reece Zuluaga M.D. 11/05/2020 7:[address] 11/05/20 18:49 CT head/brain wo con CLINICAL HISTORY: 20 years-old Male with ams. Acutely altered mental status TECHNIQUE: Multiple axial CT images of the head were obtained without contrast. A dose lowering technique was utilized adhering to the principles of ALARA. COMPARISON: CT cervical spine of same day FINDINGS: Motion degraded exam. No acute intracranial hemorrhage, midline shift, intracranial mass, hydrocephalus, territorial ischemia or abnormal extra-axial collection. The calvarium is intact. The paranasal sinuses, mastoid air cells, and middle ear cavities are clear. IMPRESSION: Motion degraded exam without acute intracranial abnormality identified. ACT 112: Negative or not required by law. The above report was generated using voice recognition software. It may contain grammatical, syntax or spelling errors. Electronically signed by: Reece Zuluaga M.D. 11/05/2020 7:22 PM Chest X-Ray 11/05/20 18:50 XR chest 1V portable HISTORY: 20 years-old Male SEPSIS COMPARISON: None TECHNIQUE: Portable semierect AP view the chest FINDINGS: Cardiac mediastinal and hilar silhouettes are within normal limits. Limited exam secondary to positioning. No pneumothorax, pleural effusion, airspace consolidation or overt pulmonary edema. Bones appear grossly intact. IMPRESSION: No acute process. ACT 112: Negative or not required by law. The above report was generated using voice recognition software. It may contain grammatical, syntax or spelling errors. Electronically signed by: Reece Zuluaga M.D. 11/05/2020 7:29 PM Code Status & VTE Plan Code Status Full code VTE Prophylaxis Plan VTE Prophylaxis will be ordered: Yes PG Care Time/CCT Total # of Minutes Spent Total Time Spent with Patient: Total time spent is greater than 50% in coordination of care (as documented) at patient's floor/unit and/or counseling patient: Coding Level of Care Code 04071 Initial Inpt Care Lvl 3 Diagnoses Accidental drug overdose T50.901A Marijuana use F12.90 Combative behavior R46.89 Aggressive behavior R46.89 Delirium R41.0 Fever R50.9 Fever type: unspecified Acute kidney injury N17.9 Rhabdomyolysis M62.82 Lactic acidosis E87.2 (1) Fever Fever type: unspecified Qualified Code(s): R50.9 - Fever, unspecified
[2020-11-05] MEDS ORDERED: ACETAMINOPHEN 1000 MG/100 ML IV IV PRN (21:54)
[2020-11-05] MEDS ORDERED: LORazepam 1 MG/2 ML VIAL IV PRN (21:54)
[2020-11-05] MEDS ORDERED: ONDANSETRON INJ 2 MG/ML 2 ML VIAL IV PRN (21:54)
[2020-11-05] MEDS ORDERED: HALOPERIDOL LACTATE 5 MG/ML 1 ML VIAL IV PRN (21:54)
[2020-11-05] MEDS: SODIUM CHLORIDE 0.9% 1000ML 1,000 ML IV SCH (22:14)
[2020-11-06] MEDS ORDERED: PIPERACILL/TAZOBAC CONSULT ACTIVE PRN (03:51)
[2020-11-06] MEDS ORDERED: PIPERACILLIN/TAZOBACTAM 3.375 GM in DEXTROSE 5% 100 ML IV ONE (04:00)
[2020-11-06] MEDS: SODIUM CHLORIDE 0.9% 1000ML 1,000 ML IV SCH (04:07)
[2020-11-06 05:10] LABS: Hematocrit (blood only) 39.3 % (42-52); Hemoglobin 13.9 g/dL (14.0-18.0); Immature Granulocytes # (auto) 0.01 K/uL (0.00-0.02); Immature Granulocytes % (auto) 0.2 %; Lymphocytes # (auto) 0.65 K/uL (1.2-3.4); Lymphocytes % (auto) 12.3 %; Mean Corpuscular Hemoglobin 30.5 pg (25-34); Mean Corpuscular Hgb Conc 35.4 g/dL (32-36); Mean Corpuscular Volume 86.4 fL (80-100); Mean Platelet Volume 9.9 fL (7.4-10.4); Monocytes # (auto) 0.18 K/uL (0.11-0.59); Monocytes % (auto) 3.4 %; Neutrophils # (auto) 4.46 K/uL (1.4-6.5); Neutrophils % (auto) 84.1 %; Platelet Count 231 K/uL (130-400); RDW Coefficient of Variation 12.1 % (11.5-14.5); RDW Standard Deviation 38.4 fL (36.4-46.3); Red Blood Count 4.55 M/uL (4.7-6.1)
[2020-11-06 05:38] LABS: Albumin Level 3.7 gm/dl (3.4-5.0); BUN Creatinine Ratio 11.9 (10-20); Calcium 8.9 mg/dl (8.5-10.1); Creatinine Clr Calc Pharmacy 114.8 ml/min; Est GFR (African American) 116.5; Est GFR (Non-African American) 100.5; Magnesium 2.2 mg/dl (1.8-2.4); Potassium 4.3 mmol/L (3.5-5.1)
[2020-11-06 05:53] LABS: Albumin Globulin Ratio 1.1 (0.9-2); Bilirubin,Total 0.8 mg/dl (0.2-1); Globulin 3.5 gm/dl (2.5-4.0); Total Protein 7.2 gm/dl (6.4-8.2); Troponin I 0.046 ng/ml (0-0.045)
[2020-11-06] MEDS ORDERED: PIPERACILLIN/TAZOBACTAM 3.375 GM in DEXTROSE 5% 100 ML IV SCH (08:00)
[2020-11-06] MEDS ORDERED: ENOXAPARIN INJ 40 MG/0.4 ML SYR SQ SCH (09:00)
[2020-11-06 10:43] LABS: Troponin I 0.03 ng/ml (0-0.045)
[2020-11-06] MEDS ORDERED: SODIUM CHLORIDE 0.9% 1000ML 1,000 ML IV ONE (11:10)
--- NOTE | 2020-11-06 11:27 | Discharge Summary ---
Date of Service November 06, 2020 Admission HPI Per Admitting Provider The patient is a 20-year-old male with no known past medical history who presents with the above symptoms. Urine drug screen was positive for marijuana, and was felt that the patient may have used synthetic marijuana product. He was reported to have been so aggressive and combative in the field, that he required ketamine for sedation there, and then received additional Haldol and lorazepam from the ED. The patient remained unresponsive in the entire time in the ED during my assessment. Work-up in the ED included a CT scan of the cervical spine which was negative, CT head negative, chest x-ray negative and COVID-19 testing negative. CK was elevated at 679, creatinine was 1.41, glucose is 142, lactate was 6.4 and temperature 100.4 F. Admission Exam Per Admitting Provider The patient is unresponsive, well developed and well nourished, normocephalic and atraumatic, lying in bed and in no acute distress. HEENT--PERRL, EOMI, mucous membranes and oropharynx dry. Neck--supple. No JVD. No bruits. Thyroid normal, trachea midline, no adenopathy. Heart--normal S1 and S2. No murmurs, rubs or gallops. Lungs--clear bilaterally, no respiratory distress, no accessory muscle use. Abdomen--normal bowel sounds and soft. Nontender. Nondistended, no hernias or masses, no organomegaly. Extremities--no cyanosis or clubbing. No edema. There are good distal pulses b/l. Dermatologic--normal skin turgor, normal color, no abnormal lymph nodes, no rash. Neurologic--cranial nerves II through XII grossly intact. Rheumatologic--limited exam, normal range of motion. Psychiatric--unresponsive Principal Diagnosis Suspected drug overdose Rhabdomyolysis Discharge Exam Constitutional WD/WN, vitals as above Eyes PERRL, conjunctivae normal, anicteric sclerae Respiratory normal respiratory effort, lungs clear to auscultation Cardiovascular RRR, no murmur, no edema Gastrointestinal (Abdomen) normal bowel sounds, soft, nontender, no hepatosplenomegaly Musculoskeletal no cyanosis or clubbing, extremities motor strength 5/5 Skin no rashes, warm and dry Neurologic moves all extremities and awake; not confused Psychiatric A+Ox3, euthymic affect Discharge Data Consultations 11/05/20 19:52 ED Decision to Admit Stat Ordered Studies 11/05/20 18:49 CT cervical spine wo con Stat FINDINGS: Vertebral body heights and alignment are normal. No fracture or subluxation is identified. The intervertebral disc spaces are preserved. No significant central canal or neural foraminal stenosis is identified. The cervical soft tissues appear unremarkable. The visualized lung apices appear clear. IMPRESSION: No acute fracture or subluxation. CT head/brain wo con Stat FINDINGS: Motion degraded exam. No acute intracranial hemorrhage, midline shift, intracranial mass, hydrocephalus, territorial ischemia or abnormal extra-axial collection. The calvarium is intact. The paranasal sinuses, mastoid air cells, and middle ear cavities are clear. IMPRESSION: Motion degraded exam without acute intracranial abnormality identified. Hospital Course (1) Accidental drug overdose: Accidental drug overdose/UDS positive for marijuana/combative and aggressive behavior/delirium- Patient was thought to have been under the influence of synthetic marijuana, and panel has been sent off. Improved overnight and patient left against medical advice but with capacity to make medical decisions (2) Rhabdomyolysis: CK rising but remains below 5000 U/L. Advised to stay until downtrending but elected to leave against medical advice. Discussed returning to the ER (3) Marijuana use: (4) Combative behavior: (5) Aggressive behavior: (6) Delirium: (7) Fever: (8) Acute kidney injury: (9) Lactic acidosis: Total Time Total Time Spent Total Time Spent (In Minutes): 35 Total Time Includes: Examination of the Patient, Discharge Planning and Medication Reconciliation Discharge Plan Discharge Items Patient Disposition: Against Medical Advice Reason For Visit: DRUG OD Condition on Discharge: Good Activity: Per Instructions section Lifting: No more than 5 pounds Exercise/Sports: Wait until after follow-up appointment Non-emergency contact: Primary Care Provider Follow-up/Referrals: PCPALIDA [Primary Care Provider] - Addtl Public Welfare Worker Provider Instructions: You were admitted to [facility] overnight from November 05-2020 due to agitated and altered mental state. Labs showed a hypoperfused state but unknown cause. Urine drug screen was positive for marijuana. You were diagnosed with rhabdomyolysis (breakdown of muscle) and recommended to stay for IV fluids however you elected to be discharged against medical advice. Please return to an ER if worsening muscle pain or urine turns red. Keep well hydrated. No strenuous activity for the next week. Please follow up with your primary care provider in the next 1-2 weeks. Total creatine kinase 2106 U/L on discharge. Kind regards, Dr Jem Cortez Pending Studies at Discharge: Yes Stand-Alone Forms: [facility] Moments, Smoking Cessation Medications and DC Order Prescriptions: No Action No Known Home Medications RF: 0 Discharge Orders: Left Against Medical Advice (Routine); Ordered 11/06/20 Ordered By: Jem Ness/Other Patient Handouts: Rhabdomyolysis, ED Rhabdomyolysis Admission Data Admit Date/Time: 11/05/20 20:50 Attending Provider: Jem Cortez Admit Provider: Lester Watt Primary Care Provider: PCP,NO Other Providers: Lester Watt Other Interventions: Discharge Summary Assessment (RN) Last Done: 11/06/20 11:32 Coding Level of Care Code D/C Day Management >30 mins Diagnoses Accidental drug overdose T50.901A Rhabdomyolysis M62.82 Marijuana use F12.90 Combative behavior R46.89 Aggressive behavior R46.89 Delirium R41.0 Fever R50.9 Fever type: unspecified Acute kidney injury N17.9 Lactic acidosis E87.2
--- NOTE | 2020-11-06 13:02 | Electrocardiogram Report ---
Test Reason : Blood Pressure : / mmHG Vent. Rate : 116 BPM Atrial Rate : 116 BPM P-R Int : 130 ms QRS Dur : 096 ms QT Int : 304 ms P-R-T Axes : 078 096 068 degrees QTc Int : 422 ms Poor data quality, interpretation may be adversely affected Sinus tachycardia Rightward axis Borderline ECG No previous ECGs available Confirmed by Justin Balderrama ([id number]) on 11/06/2020 1:01:57 PM Referred By: REFERRED SELF Confirmed By:Loi Balderrama
--- NOTE | 2020-11-06 13:05 | Electrocardiogram Report ---
Test Reason : Blood Pressure : / mmHG Vent. Rate : 077 BPM Atrial Rate : 077 BPM P-R Int : 140 ms QRS Dur : 100 ms QT Int : 374 ms P-R-T Axes : 054 041 045 degrees QTc Int : 423 ms Normal sinus rhythm with sinus arrhythmia Normal ECG When compared with ECG of 05-NOV-2020 18:54, (unconfirmed) Vent. rate has decreased BY 39 BPM Confirmed by Justin Balderrama ([id number]) on 11/06/2020 1:05:14 PM Referred By: REFERRED SELF Confirmed By:Loi Balderrama
[2020-11-08 23:53] LABS: Marijuana Quant, GCMS Urine 279 ng/mL (<5)
[2020-11-11 16:02] LABS: Synthetic Cannabinoid Qual Ur NEGATIVE (Negative)
== END 2020-11-06 11:39 | disposition left against medical advice (07) | DRG 918 ==
LOC: ED 18:44 → SUATTDRO 20:50 → 1E 20:50